=== PATIENT | male | born 1980 | race Caucasian/White ===

== ENCOUNTER 2020-02-14 03:51 | Emergency (ER) | payer BC, SELFPAY ==
[2020-02-14] MEDS ORDERED: AMOX/K CLAV 875 MG TAB ONE (04:14)
[2020-02-14] MEDS ORDERED: HYDROCODONE/APAP 10/325 TAB ONE (04:14)
[2020-02-14 04:26] VITALS: BP 191/121; TEMP 96.7; O2SAT 100
--- NOTE | 2020-02-18 15:32 | EDPHYS ---
Physician Documentation [facility] Name: Naseem Casillas Age: 39 yrs Sex: Male : 1980 Arrival Date: 02/14/2020 Time: 03:53 Bed 2 Private MD: ED Physician Waqar Martin HPI: 02/13 04:04 This 39 yrs old Male presents to ER via Unassigned with complaints of ma2 Toothache. 04:04 The patient presents with pain. Onset: The symptoms/episode began/occurred gradually, 2 ma2 day(s) ago. Associated signs and symptoms: Pertinent negatives: fever, nausea. Severity of symptoms: At their worst the symptoms were moderate, in the emergency department the symptoms are unchanged. The patient has experienced similar episodes in the past. Historical: - Allergies: 04:06 No Known Allergies; jb4 - Home Meds: 04:06 None [Active]; jb4 - PMHx: 04:06 Hypertension; jb4 - PSHx: 04:06 None; jb4 - Immunization history:: Adult Immunizations up to date. - Social history:: Patient/guardian denies using alcohol, street drugs, The patient lives with spouse, Smoking status: Patient reports the use of cigarette tobacco products, smokes one pack cigarettes per day. - Family history:: not pertinent. ROS: 04:04 Constitutional: Negative for fever, chills, and weight loss. ma2 04:04 All other systems are negative. Exam: 04:04 Constitutional: This is a well developed, well nourished patient who is awake, alert, ma2 and in no acute distress. Head/Face: Normocephalic, atraumatic. Eyes: Pupils equal round and reactive to light, extra-ocular motions intact. Lids and lashes normal. Conjunctiva and sclera are non-icteric and not injected. Cornea within normal limits. Periorbital areas with no swelling, redness, or edema. ENT: dental carisNares patent. No nasal discharge, no septal abnormalities noted. Tympanic membranes are normal and external auditory canals are clear. Oropharynx with no redness, swelling, or masses, exudates, or evidence of obstruction, uvula midline. Mucous membranes moist. Neck: Trachea midline, no thyromegaly or masses palpated, and no cervical lymphadenopathy. Supple, full range of motion without nuchal rigidity, or vertebral point tenderness. No Meningismus. Chest/axilla: Normal chest wall appearance and motion. Nontender with no deformity. No lesions are appreciated. Cardiovascular: Regular rate and rhythm with a normal S1 and S2. No gallops, murmurs, or rubs. Normal PMI, no JVD. No pulse deficits. Respiratory: Lungs have equal breath sounds bilaterally, clear to auscultation and percussion. No rales, rhonchi or wheezes noted. No increased work of breathing, no retractions or nasal flaring. Abdomen/GI: Soft, non-tender, with normal bowel sounds. No distension or tympany. No guarding or rebound. No evidence of tenderness throughout. Vital Signs: 04:03 BP 191 / 121; Pulse 90; Resp 16; Temp 96.7; Pulse Ox 100% on R/A; Weight 129.27 kg (R); jb4 Height 6 ft. 0 in. (182.88 cm) (R); Pain 10/10; 04:03 Body Mass Index 38.65 (129.27 kg, 182.88 cm) jb4 MDM: 04:00 Patient medically screened. ma2 04:04 Differential diagnosis: gingivitis, dental abscess, pericoronitis, aphthous ulcers. ma2 Data reviewed: vital signs, nurses notes. Counseling: I had a detailed discussion with the patient and/or guardian regarding: the historical points, exam findings, and any diagnostic results supporting the discharge/admit diagnosis, the presence of at least one elevated blood pressure reading (>120/80) during this emergency department visit, the need for outpatient follow up. Response to treatment: the patient's symptoms have markedly improved after treatment. Administered Medications: 04:08 Drug: [place] 10 mg-325 mg 1 tabs Route: PO; mg2 04:08 Follow up: Response: No adverse reaction; Medication administered at discharge. mg2 04:08 Drug: Augmentin 875 mg Route: PO; mg2 04:08 Follow up: Response: No adverse reaction; Medication administered at discharge. mg2 Disposition: 02/14/20 04:05 Discharged to Home. Impression: Dental caries. - Condition is Stable. - Discharge Instructions: Dental Pain. - Prescriptions for Augmentin 875- 125 mg Oral Tablet - take 1 tablet by ORAL route every 12 hours for 10 days; 20 tablet. Diclofenac Sodium 75 mg Oral Tablet Sustained Release - take 1 tablet by ORAL route 2 times per day; 30 tablet. - Medication Reconciliation Form, Thank You Letter, Antibiotic Education, Prescription Opioid Use form. - Follow up: Private Physician; When: Tomorrow; Reason: Continuance of care. Signatures: Roscoe Cevallos RN RN jb4 Waqar Martin MD MD ma2 Jarrett Flores RN RN mg2 Corrections: (The following items were deleted from the chart) 04:19 04:05 02/14/2020 04:05 Discharged to Home. Impression: Dental caries. Condition is jb4 Stable. Forms are Medication Reconciliation Form, Thank You Letter, Antibiotic Education, Prescription Opioid Use. Follow up: Private Physician; When: Tomorrow; Reason: Continuance of care. ma2
--- NOTE | 2020-02-18 15:35 | ER ---
Nurse's Notes [facility] Name: Naseem Casillas Age: 39 yrs Sex: Male : 1980 Arrival Date: 02/14/2020 Time: 03:53 Bed 2 Private MD: Diagnosis: Dental caries Presentation: 02/13 04:03 Chief complaint: Patient states: I have a toothache on the right side on the upper and jb4 lower front and back side. It started 2 days ago. Coronavirus screen: Proceed with normal triage. Ebola Screen: No symptoms or risks identified at this time. Initial Sepsis Screen: Does the patient meet any 2 criteria? No. Patient's initial sepsis screen is negative. Does the patient have a suspected source of infection? No. Patient's initial sepsis screen is negative. Risk Assessment: Do you want to hurt yourself or someone else? Patient reports no desire to harm self or others. Onset of symptoms was February 12, 2020. Transition of care: patient was not received from another setting of care. 04:03 Method Of Arrival: Ambulatory jb4 04:03 Acuity: NAOMI 3 jb4 Historical: - Allergies: 04:06 No Known Allergies; jb4 - Home Meds: 04:06 None [Active]; jb4 - PMHx: 04:06 Hypertension; jb4 - PSHx: 04:06 None; jb4 - Immunization history:: Adult Immunizations up to date. - Social history:: Patient/guardian denies using alcohol, street drugs, The patient lives with spouse, Smoking status: Patient reports the use of cigarette tobacco products, smokes one pack cigarettes per day. - Family history:: not pertinent. Screenin:10 Abuse screen: Denies threats or abuse. Denies injuries from another. Tuberculosis mg2 screening: No symptoms or risk factors identified. Fall Risk None identified. 04:17 Nutritional screening: No deficits noted. mg2 Assessment: 04:06 General: Appears in no apparent distress. uncomfortable, Behavior is calm, cooperative, jb4 appropriate for age. Pain: Complains of pain in mouth Pain does not radiate. Pain currently is 10 out of 10 on a pain scale. Neuro: Level of Consciousness is awake, alert, obeys commands, Oriented to person, place, time, situation. Cardiovascular: Patient's skin is warm and dry. Respiratory: Airway is patent Respiratory effort is even, unlabored, Respiratory pattern is regular, symmetrical. GI: No signs and/or symptoms were reported involving the gastrointestinal system. : No signs and/or symptoms were reported regarding the genitourinary system. EENT: Poor dentition noted. Absence of teeth noted - lower right second molar (#31). Derm: Skin is intact, Skin is pink, warm \T\ dry. Musculoskeletal: Circulation, motion, and sensation intact. Range of motion:. 04:10 General: Appears in no apparent distress. comfortable, Behavior is calm, cooperative. mg2 Pain: Complains of pain in tooth. Neuro: Level of Consciousness is awake, alert, obeys commands, Oriented to person, place, time, situation. Cardiovascular: Capillary refill < 3 seconds Patient's skin is warm and dry. Respiratory: Airway is patent Respiratory effort is even, unlabored, Respiratory pattern is regular, symmetrical. GI: No signs and/or symptoms were reported involving the gastrointestinal system. : No signs and/or symptoms were reported regarding the genitourinary system. EENT: Reports toothache. Derm: Skin is intact, is healthy with good turgor, Skin is pink, warm \T\ dry. normal. Musculoskeletal: Circulation, motion, and sensation intact. Capillary refill < 3 seconds. 04:18 Reassessment: Patient appears in no apparent distress at this time. Patient and/or jb4 family updated on plan of care and expected duration. Pain level reassessed. Patient is alert, oriented x 3, equal unlabored respirations, skin warm/dry/pink. Vital Signs: 04:03 BP 191 / 121; Pulse 90; Resp 16; Temp 96.7; Pulse Ox 100% on R/A; Weight 129.27 kg (R); jb4 Height 6 ft. 0 in. (182.88 cm) (R); Pain 10/10; 04:03 Body Mass Index 38.65 (129.27 kg, 182.88 cm) jb4 ED Course: 03:53 Patient arrived in ED. cl3 04:00 Waqar Martin MD is Attending Physician. ma2 04:01 Roscoe Cevallos, RN is Primary Nurse. jb4 04:05 Triage completed. jb4 04:06 Arm band placed on right wrist. jb4 04:06 Patient has correct armband on for positive identification. Bed in low position. Call jb4 light in reach. Side rails up X 1. 04:18 No provider procedures requiring assistance completed. Patient did not have IV access jb4 during this emergency room visit. Administered Medications: 04:08 Drug: [place] 10 mg-325 mg 1 tabs Route: PO; mg2 04:08 Follow up: Response: No adverse reaction; Medication administered at discharge. mg2 04:08 Drug: Augmentin 875 mg Route: PO; mg2 04:08 Follow up: Response: No adverse reaction; Medication administered at discharge. mg2 Outcome: 04:05 Discharge ordered by MD. deshpande 04:16 Discharged to home ambulatory. mg2 04:16 Condition: stable 04:16 Discharge instructions given to patient, Instructed on discharge instructions, follow up and referral plans. medication usage, Demonstrated understanding of instructions, follow-up care, medications, Prescriptions given X 2. 04:19 Patient left the ED. jb4 Signatures: Roscoe Cevallos RN RN jb4 Waqar Martin MD MD ma2 Jarrett Flores RN RN mg2 Uziel Shaffer 3
== END 2020-02-14 04:19 | disposition home or self-care (01) ==
LOC: ER 03:51
DX: K02.9 Dental caries, unspecified (principal); I10 Essential (primary) hypertension; F17.210 Nicotine dependence, cigarettes, uncomplicated
CPT/HCPCS: 99283

== ENCOUNTER 2021-08-17 01:04 | Emergency (ER) | payer SELFPAY ==
--- OUTSIDE RECORDS SUMMARY | 2021-08-17 01:09 | XMS REPORT | Continuity of Care Document ---
:1980 Author Organization [facility] t Address [address] [place] [address] Care Team Providers Name Role Phone Pcp, Does Not Have A Primary Care Physician Juan Miguel ARIZMENDI, F Attending Clinician Doctor Unassigned, Name Attending Clinician Unavailable Mary GARZA, [place] Attending Clinician [place] YA Attending Clinician Unavailable Danya ARIZMENDI Attending Clinician DANYA Attending Clinician Unavailable Alfredo Nova Attending Clinician ALFREDO BENITEZ Attending Clinician Unavailable Payers Payer Name Policy Type Policy Number Effective Date Expiration Date S alpa MARTINEZ BCBS BLUE [id number] 2016 ADVANTAGE HMO 00:00:00 Problems Condition Condition Condition Status Onset Resolution Last Treating Co mments Source Name Details Category Date Date Treatment Clinician Date No known No known Disease Unive rs active active ity of problems problems [facility] Allergies, Adverse Reactions, Alerts Allergy Allergy Status Severity Reaction(s) Onset Inactive Treating Comm ents Source Name Type Date Date Clinician NO KNOWN Drug Active Univers ALLERGIE Class ity of S [facility] [place] [facility] Social History Social Habit Start Date Stop Date Quantity Comments Source Exposure to Not sure [facility] SARS-CoV-2 (event) Medica l Branch Sex Assigned At [birth year] [facility] 00:00:00 00:00:00 Medical Branch Smoking Status Start Date Stop Date Source Unknown if ever smoked [facility] [place] [facility] Medications Ordered Filled Start Stop Current Ordering Indication Dosage Frequency Signature Comments Components Source Medication Medication Date Date Medication? Clinician (SIG) Name Name amoxicillin 2020- No 1{tbl} 1 tablet, Univers -clavulanat 05-23 Oral, ity of e 02:45: 01:38 ONCE, 1 [place] (AUGMENTIN) 00 :00 dose, Fri Med ical 875-125 mg 05/22/21 at Bran ch per tablet 2145, 1 tablet Routine
Reason for Anti-Infec tive: Documented Infection< br>Documen edna Infection Site: Skin / Soft Tissue
Duration of Therapy: Other (see Comments) amoxicillin 2020- No 1{tbl} 1 tablet, Univers -clavulanat 05-23 Oral, ity of e 02:45: 01:38 ONCE, 1 [place] (AUGMENTIN) 00 :00 dose, Fri Med ical 875-125 mg 05/22/21 at Bran ch per tablet 5, 1 tablet Routine
Reason for Anti-Infec tive: Documented Infection< br>Documen edna Infection Site: Skin / Soft Tissue
Duration of Therapy: Other (see Comments) amoxicillin 2020- Yes [id number] 1{tbl} Take 1 Univers -clavulanat 05-22 tablet by it y of e 875-125 00:00: 04:59 mouth [place] mg per 00 :00 every 12 Medical tablet (twelve) Branch hours for 8 days. amoxicillin 2020- Yes [id number] 1{tbl} Take 1 Univers -clavulanat 05-22 tablet by it y of e 875-125 00:00: 04:59 mouth [place] mg per 00 :00 every 12 Medical tablet (twelve) Branch hours for 8 days. indomethaci 2020- Yes [id number] 50mg Take 1 Univers n 50 mg 05-22 capsule by ity o f capsule 00:00: 04:59 mouth 3 [place] 00 :00 (three) Medical times Branch daily with meals for 7 days. indomethaci 2020- Yes [id number] 50mg Take 1 Univers n 50 mg 05-22 capsule by ity o f capsule 00:00: 04:59 mouth 3 [place] 00 :00 (three) Medical times [place] daily with meals for 7 days. indomethaci 2020- No [id number] 50mg Take 1 Univers n 50 mg 05-22 capsule by ity o f capsule 00:00: 00:00 mouth 3 [place] 00 :00 (three) Medical times [place] daily with meals for 7 days. indomethaci 2020- No [id number] 50mg Take 1 Univers n 50 mg 05-22 capsule by ity o f capsule 00:00: 00:00 mouth 3 [place] 00 :00 (three) Medical times [place] daily with meals for 7 days. ibuprofen 2020- No 800mg 800 mg, Uni vers (IBU) 05-13 Oral, ity of tablet 800 01:45: 13:44 ONCE, 1 Y[place]iel as mg 00 :00 dose, [facility] 05/12/21 at [place] 2044, ADONIS cephALEXin 2020- No 500mg 500 mg, Un leona (KEFLEX) 05-13 Oral, ONCE ity of capsule 500 01:45: 00:39 NOW, 1 [place] as mg 00 :00 dose, [facility] 05/12/21 at [place] 2044, ADONIS
Re ason for Anti-Infec tive: Documented Infection< br>Documen dena Infection Site: HEENT
D uration of Therapy: 10 days ibuprofen No 800mg 800 mg, Uni vers (IBU) 05-13 Oral, ity of tablet 800 01:45: 13:44 ONCE, 1 [place]ariel as mg 00 :00 dose, [facility] 05/12/21 at [place] 2044, ADONIS cephALEXin 2020- No 500mg 500 mg, Un leona (KEFLEX) 05-13 Oral, ONCE ity of capsule 500 01:45: 00:39 NOW, 1 [place] as mg 00 :00 dose, [facility] 05/12/21 at [place] , ADONIS
Re ason for Anti-Infec tive: Documented Infection< br>Documen edna Infection Site: HEENT
D uration of Therapy: 10 days chlorhexidi 2021-0 Yes [id number] 15mL Swish and Univers ne 0.12 % 8-24 spit out ity of mouthwash 00:00: 15 mL 2 [place] 00 (two) Medical times Branch daily. chlorhexidi 2020-0 Yes [id number] 15mL Swish and Univers ne 0.12 % 8-24 spit out ity of mouthwash 00:00: 15 mL 2 [place] 00 (two) Medical times Branch daily. chlorhexidi 2020-0 Yes [id number] 15mL Swish and Univers ne 0.12 % 8-24 spit out ity of mouthwash 00:00: 15 mL 2 [place] 00 (two) Medical times Branch daily. chlorhexidi 2020-0 Yes [id number] 15mL Swish and Univers ne 0.12 % 8-24 spit out ity of mouthwash 00:00: 15 mL 2 [place] 00 (two) Medical times Branch daily. chlorhexidi 2020-0 Yes [id number] 15mL Swish and Univers ne 0.12 % 8-24 spit out ity of mouthwash 00:00: 15 mL 2 [place] 00 (two) Medical times Branch daily. chlorhexidi 2020-0 Yes [id number] 15mL Swish and Univers ne 0.12 % 8-24 spit out ity of mouthwash 00:00: 15 mL 2 [place] 00 (two) Medical times Branch daily. indomethaci 2020- No [id number] 50mg Take 1 Univers n 50 mg 8-12 06- capsule by ity o f capsule 00:00: 04:59 mouth 3 [place] 00 :00 (three) Medical times Branch daily with meals for 10 days. indomethaci 2020- No [id number] 50mg Take 1 Univers n 50 mg 8-12 06- capsule by ity o f capsule 00:00: 04:59 mouth 3 [place] 00 :00 (three) Medical times Branch daily with meals for 10 days. indomethaci 2020- No [id number] 50mg Take 1 Univers n 50 mg 8-12 06- capsule by ity o f capsule 00:00: 04:59 mouth 3 [place] 00 :00 (three) Medical times Branch daily with meals for 10 days. indomethaci 2020- No [id number] 50mg Take 1 Univers n 50 mg 05-12 capsule by ity o f capsule 00:00: 04:59 mouth 3 [place] 00 :00 (three) Medical times Branch daily with meals for 10 days. indomethaci 2020-2020- No [id number] 50mg Take 1 Univers n 50 mg 05-12 capsule by ity o f capsule 00:00: 00:00 mouth 3 [place] 00 :00 (three) Medical times Branch daily with meals for 10 days. indomethaci 2020- No [id number] 50mg Take 1 Univers n 50 mg 05-12 capsule by ity o f capsule 00:00: 00:00 mouth 3 [place] 00 :00 (three) Medical times Branch daily with meals for 10 days. cephALEXin 2020- No [id number] 500mg Take 1 Univers 500 mg 05-12 capsule by ity of capsule 00:00: 04:59 mouth 4 [place] 00 :00 (four) Medical times Branch daily for 7 days. cephALEXin 2020- No [id number] 500mg Take 1 Univers 500 mg 05-12 capsule by ity of capsule 00:00: 04:59 mouth 4 [place] 00 :00 (four) Medical times Branch daily for 7 days. cephALEXin 2020- No 500mg 500 mg, Un leona (KEFLEX) 12-01 Oral, ONCE ity of capsule 500 06:15: 05:11 NOW, 1 [place] as mg 00 :00 dose, [facility] 12/01/20 at Branch 0115, ADONIS
Re ason for Anti-Infec tive: Documented Infection< br>Documen edna Infection Site: Skin / Soft Tissue
Duration of Therapy: 7 days ketorolac 2020- No 30mg 30 mg, Unive rs (TORADOL) 12-01 Slow IV ity of injection 04:15: 03:22 Push, [place] 30 mg 00 :00 ONCE, 1 Medical dose, [facility] 11/30/20 at 2315, ADONIS
Fa culty member approving Restricted medication : EMERGENCY ROOM, pantoprazol 2020- No 40mg 40 mg, IV Univers e 12-01 Piggyback, ity of (PROTONIX) 04:00: 03:23 ONCE, 1 [place] as 40 mg in 00 :00 dose, [facility] NaCl 0.9% 11/30/20 at [facility] ch (NS) 100 mL 2300, 100 MINI-BAG mL iohexol 2020- No [id number] 120mL 120 mL, Univers (OMNIPAQUE 12-01 Intravenou it y of 350 03:45: 03:27 s, ONCE, 1 [place] BULK-100 00 :00 dose, [facility] mL) 11/30/20 at [place] injection 2245, 120 mL Routine maalox:diph 2020- No 15mL 15 mL, Uni vers enhydrAMINE 12-01 Oral, ity of :lidocaine 03:00: 03:06 ONCE, 1 [place] as 2 % viscous 00 :00 dose, [place] Med ical 1:1:1 11/30/20 at [place] (FIRST-MOUT 2200, ADONIS HWASH BLM) oral suspension 15 mL NaCl 0.9% 2020- No 1000mL at 999 Uni vers (NS) bolus 12-01 mL/hr, ity of infusion 03:00: 05:13 1,000 mL, Y[place]iel as 1,000 mL 00 :00 IV Medical Infusion, [place] ONCE, 1 dose, [place] 11/30/20 at 2200, ADONIS pantoprazol 2020- No [id number] 40mg Take 1 Univers e 12-01 tablet by ity of (PROTONIX) 00:00: 04:59 mouth [place] 40 mg EC 00 :00 daily for Medica l tablet 30 days. [place] cephALEXin 2020- No [id number] 500mg Take 1 Univers (KEFLEX) 12-01 [id number] capsule by it y of 500 mg 00:00: 04:59 mouth 4 [place] capsule 00 :00 (four) Medical times [place] daily for 7 days. acetaminoph 2020- No [id number] 1{tbl} Take 1 U nivers en-codeine 12-01 tablet by ity of 300-30 mg 00:00: 04:59 mouth [place] tablet 00 :00 every 6 Medical (six) Branch hours as needed for Pain (scale 7-10) for up to 7 days. Indication s: acute pain traMADoL 2020-2020- No 100mg 100 mg, Univ ers (ULTRAM) 10-22 Oral, ity of tablet 100 03:00: 01:58 ONCE, 1 [place] as mg 00 :00 dose, [facility] Medical 10/21/20 at Branch 2100, Routine ibuprofen 2020-2020- No 600mg 600 mg, Uni vers (IBU) 10-22 Oral, ity of tablet 600 03:00: 01:57 ONCE, 1 [place] as mg 00 :00 dose, [facility] Medical 10/21/20 at Branch 2100, ADONIS cyclobenzap 2020- No 10mg 10 mg, Uni vers rine 10-22 Oral, ity of (FLEXERIL) 03:00: 01:57 ONCE, 1 [place] as tablet 10 00 :00 dose, [facility] Medic al mg 10/21/20 at Branch 2100, Routine cyclobenzap 0 Yes [id number] 10mg Take 1 Univers rine 10 mg 2-02 tablet by ity of tablet 00:00: mouth 3 [place] 00 (three) Medical times Branch daily. ibuprofen 2020-0 Yes [id number] 600mg Take 1 Univers 600 mg 2-02 tablet by ity of tablet 00:00: mouth [place] 00 every 6 Medical (six) Branch hours as needed for Pain (scale 4-6). cyclobenzap 2020-0 Yes [id number] 10mg Take 1 Univers rine 10 mg 2-02 tablet by ity of tablet 00:00: mouth 3 [place] 00 (three) Medical times Branch daily. ibuprofen 2020-0 Yes [id number] 600mg Take 1 Univers 600 mg 2-02 tablet by ity of tablet 00:00: mouth [place] 00 every 6 Medical (six) Branch hours as needed for Pain (scale 4-6). cyclobenzap 2020-0 202- No [id number] 10mg Take 1 Univers rine 10 mg 2-02 08-24 tablet by ity of tablet 00:00: 00:00 mouth 3 [place] 00 :00 (three) Medical times Branch daily. ibuprofen 2020-0 2021- No [id number] 600mg Take 1 Univers 600 mg 2-02 08-24 tablet by ity of tablet 00:00: 00:00 mouth [place] 00 :00 every 6 Medical (six) Branch hours as needed for Pain (scale 4-6). cyclobenzap 2020- No [id number] 10mg Take 1 Univers rine 10 mg -10 27-24 tablet by ity of tablet 00:00: 00:00 mouth 3 [place] 00 :00 (three) Medical times Branch daily. ibuprofen 2020- No [id number] 600mg Take 1 Univers 600 mg 10-21-24 tablet by ity of tablet 00:00: 00:00 mouth [place] 00 :00 every 6 Medical (six) Branch hours as needed for Pain (scale 4-6). sod Yes 1{bottl Use 1 Univers chlor-bicar 2-07 e} Bottle in ity of b-squeez 00:00: each [place] bottle 00 nostril 2 Medical (NEILMED (two) Branch SINUS RINSE times COMPLETE) daily. Use pkdv in hot shower 1 hour before bedtime benzonatate Yes 100mg Take 1 Uni vers 100 mg 2-07 capsule by ity of capsule 00:00: mouth 3 [place] 00 (three) Medical times Branch daily as needed for Cough. DO NOT CHEW! montelukast Yes 10mg Take 1 Univ ers (SINGULAIR) 2-07 tablet by ity of 10 mg 00:00: mouth [place] tablet 00 daily. Medical Branch sod Yes 1{bottl Use 1 Univers chlor-bicar 2-07 e} Bottle in ity of b-squeez 00:00: each [place] bottle 00 nostril 2 Medical (NEILMED (two) Branch SINUS RINSE times COMPLETE) daily. Use pkdv in hot shower 1 hour before bedtime benzonatate Yes 100mg Take 1 Uni vers 100 mg 2-07 capsule by ity of capsule 00:00: mouth 3 [place] 00 (three) Medical times Branch daily as needed for Cough. DO NOT CHEW! montelukast Yes 10mg Take 1 Univ ers (SINGULAIR) 2-07 tablet by ity of 10 mg 00:00: mouth [place] tablet 00 daily. Medical Branch sod 2020- No 1{bottl Use 1 Univers chlor-bicar 2-07 08-24 e} Bottle in it y of b-squeez 00:00: 00:00 each [place] bottle 00 :00 nostril 2 Medical (NEILMED (two) Branch SINUS RINSE times COMPLETE) daily. Use pkdv in hot shower 1 hour before bedtime benzonatate 2020- No 100mg Take 1 Un leona 100 mg 10-26 capsule by ity of capsule 00:00: 00:00 mouth 3 [place] 00 :00 (three) Medical times Branch daily as needed for Cough. DO NOT CHEW! montelukast 2020- No 10mg Take 1 Uni vers (SINGULAIR) 10-26-24 tablet by it y of 10 mg 00:00: 00:00 mouth [place] tablet 00 :00 daily. Medical Branch sod 2020- No 1{bottl Use 1 Univers chlor-bicar 10-26 e} Bottle in it y of b-squeez 00:00: 00:00 each [place] bottle 00 :00 nostril 2 Medical (NEILMED (two) Branch SINUS RINSE times COMPLETE) daily. Use pkdv in hot shower 1 hour before bedtime benzonatate 2020- No 100mg Take 1 Un leona 100 mg 10-26- capsule by ity of capsule 00:00: 00:00 mouth 3 [place] 00 :00 (three) Medical times [place] daily as needed for Cough. DO NOT CHEW! montelukast 2020- No 10mg Take 1 Uni vers (SINGULAIR) 10-26-24 tablet by it y of 10 mg 00:00: 00:00 mouth [place] tablet 00 :00 daily. [facility] Branch Vital Signs Vital Name Observation Time Observation Value Comments Source Systolic blood 2021-05-22 23:27:00 190 [facility] Diastolic blood 2021-05-22 23:27:00 104 mm[Hg] [facility] Heart rate 2021-05-22 23:27:00 88 /min [facility] Body temperature 2021-05-22 23:27:00 37.28 Delaney [facility] Respiratory rate 2021-05-22 23:27:00 18 /min [facility] Body weight 2021-05-22 23:27:00 122.471 kg [facility] [place] [facility] BMI 2021-05-22 23:27:00 36.62 kg/m2 [facility] [place] [facility] Oxygen saturation in 2021-05-22 23:27:00 99 /min University of Arterial blood by [facility] Pulse oximetry Branch Systolic blood 2021-05-13 01:12:00 145 mm[Hg] MAP 115 Univer sity of pressure [place] [facility] Diastolic blood 2021-05-13 01:12:00 100 mm[Hg] MAP 115 Unive rsity of pressure [place] [facility] Heart rate 2021-05-13 01:12:00 86 /min [facility] [place] [facility] Body temperature 2021-05-13 01:12:00 36.89 Delaney Univ ersity [facility] [place] [facility] Respiratory rate 2021-05-13 01:12:00 18 /min Univ ersity [facility] [place] [facility] Oxygen saturation in 2021-05-13 01:12:00 97 /min University of Arterial blood by [facility] Pulse oximetry Branch Body height 2021-05-13 00:07:00 182.9 cm [facility] [place] [facility] Body weight 2021-05-13 00:07:00 122.471 kg [facility] [place] [facility] BMI 2021-05-13 00:07:00 36.62 kg/m2 [facility] [place] [facility] Systolic blood 2020-12-01 04:00:00 155 mm[Hg] Univer sity of pressure [place] [facility] Diastolic blood 2020-12-01 04:00:00 97 mm[Hg] Unive rsity of pressure [place] [facility] Heart rate 2020-12-01 04:00:00 84 /min [facility] [place] [facility] Respiratory rate 2020-12-01 04:00:00 10 /min Univ ersity [facility] [place] [facility] Oxygen saturation in 2020-12-01 04:00:00 99 /min University of Arterial blood by [facility] Pulse oximetry Branch Body temperature 2020-12-01 02:30:09 36.5 Delaney Univ ersity [facility] [place] [facility] Body height 2020-12-01 02:28:00 182.9 cm [facility] [place] [facility] Body weight 2020-12-01 02:28:00 127.007 kg [facility] BMI 2020-12-01 02:28:00 37.97 kg/m2 [facility] Systolic blood 2020-10-22 01:13:00 155 mm[Hg] Univer sity of [facility] Diastolic blood 2020-10-22 01:13:00 104 mm[Hg] [facility] Heart rate 2020-10-22 01:13:00 81 /min [facility] Body temperature 2020-10-22 01:13:00 36.78 Delaney [facility] Respiratory rate 2020-10-22 01:13:00 18 /min [facility] Body height 2020-10-22 01:13:00 182.9 cm [facility] Body weight 2020-10-22 01:13:00 131.543 kg [facility] BMI 2020-10-22 01:13:00 39.33 kg/m2 [facility] Oxygen saturation in 2020-10-22 01:13:00 99 /min [facility] Arterial blood by [facility] Pulse oximetry Branch Procedures Procedure Date / Time Performed Performing Clinician [facility] e CONSENT/REFUSAL FOR 2021-05-22 23:05:35 [facility] Branch TREATMENT CONSENT/REFUSAL FOR 2021-05-12 23:53:47 Doctor Unassigned, No [facility] [place] [facility] AND Name Medical Branch TREATMENT CT ABDOMEN PELVIS W 2020-12-01 03:31:27 Romero Hagan [facility] CONTRAST [facility] Branch LIPASE 2020-12-01 02:39:00 Romero Hagan [facility] HEPATIC FUNCTION PANEL 2020-12-01 02:39:00 Romero Hagan [facility] ([id number]) Medical [place] (ALB,T.PRO,BILI T,BU/BC,ALT,AST,ALK PHOS) BASIC METABOLIC PANEL 2020-12-01 02:39:00 Romero Hagan [facility] (NA, K, CL, CO2, Medical Branch GLUCOSE, BUN, CREATININE, CA) CBC WITH DIFF 2020-12-01 02:39:00 Romero Hagan [facility] [place] [facility] URINALYSIS 2020-12-01 02:39:00 Romero Hagan [facility] [place] [facility] CONSENT/REFUSAL FOR 2020-12-01 02:20:50 Doctor Unassigned, No Un i[facility] of [place] DIAGNOSIS AND Name Medical Branch TREATMENT NOTICE OF PRIVACY 2020-10-22 01:05:49 Doctor Unassigned, No Univ ersity [facility] PRACTICES Name Medical Branch CONSENT/REFUSAL FOR 2020-10-22 01:02:45 Doctor Unassigned, No Un iversity of [place] DIAGNOSIS AND Name Medical Branch TREATMENT Encounters Start End Encounter Admission Attending Care Care Encounter Source Date/Time Date/Time Type Type Clinicians Facility Department ID 2021-05-22 2021-05-22 [facility] [id number] Univers 18:29:00 20:41:00 Nico Cervantes [id number] ity of [place] [id number] [facility] [id number] [place] [id number] Branch 2021-05-22 2021-05-22 Emergency X [facility] ERT [id number] Univers 18:05:00 18:05:00 ity of [facility] [place] [facility] 2021-05-22 2021-05-22 Orders Doctor KIM [id number] Univers 00:00:00 00:00:00 Only Unassigned, KELLY [id number] ity of [place] [facility] [id number] [facility] [place] [facility] [id number] [facility] 009 Branch 2021-05-12 2021-05-12 Emergency [facility] [id number] Univers 19:10:00 20:15:00 Sheba Cervantes [id number] ity of [place] [id number] [facility] [id number] [facility] 084 Branch 2021-05-12 2021-05-12 Emergency X [facility] ERT [id number] Univers 19:10:00 19:10:00 SHEBA alvarez [facility] 2020-11-30 2020-12-01 [facility] [id number] Univers 21:32:00 00:21:00 Romero Cervantes [id number] i ty of [place] [id number] [facility] [id number] [place] [address] Branch 2020-11-30 2020-11-30 Emergency X HAGAN, [facility] ERT [id number] Univers 21:32:00 21:32:00 ROMERO ity [facility] 2020-10-21 2020-10-21 Emergency Emmanuel, [facility] [id number] Univers 19:16:00 20:08:00 Alfredo Cervantes [id number] i ty of [place] [id number] [facility] [id number] [place] [address] Branch 2020-10-21 2020-10-21 Emergency X EMMANUEL, [facility] ERT [id number] Univers 19:16:00 19:16:00 [facility] Results Test Test Test Results Result Source Description Time Comments Comments CT ABDOMEN 2020-11 1. ?Mild edematous pancreatic University PELVIS W -15 head with peripancreatic fat of [place] CONTRAST 04:29:0 strandingsuggests acute M edical 6 interstitial pancreatitis. No Branch peripancreatic collections ornecrosis is identified. 2. ?Cholelithiasis. Hepatosplenomegaly with hepatic steatosis. 3. ?Left-sided simple renal cysts, measuring up to 1.7 cm. Preliminary Report Dictated by Resident: Tyler Cota ?MD. [place], have reviewed this study and agree withthe above report.EXAM: CT ABDOMEN AND PELVIS WITH CONTRAST HISTORY: 40-year-old male complains of diffuse abdominal pain anddistention. COMPARISON: None. DOSE: 741 mGy-cm. TECHNIQUE AND FINDINGS: Contiguous axial imaging from the level of the lungbases through the pubic symphysis was performed after the uncomplicatedadministration of 120 cc of intravenous Omnipaque contrast. Coronal andsagittal reconstructions were obtained. ?Auto mA and/or iterativereconstruction were used to reduce radiation dose. FINDINGS: LOWER THORAX: The lungs bases are clear. No cardiomegaly. LIVER: The liver is diffusely hypodense and enlarged, measures 25.3 cm incraniocaudal dimension. Normal contour. No focal hepatic lesions areidentified. GALLBLADDER AND BILIARY TREE: No biliary ductal dilation. The gallbladderis physiologically distended and an contains mixed density stones,measuring up to 1.9 cm. SPLEEN: The spleen is enlarged, measures 14.9 cm in craniocaudal dimension. PANCREAS: The pancreatic head appears slightly edematous with homogeneousenhancement and mild peripancreatic fat stranding (3:63-72 and 5:53). Noperihepatic collections are identified. Mild fatty atrophy of the pancreasis noted. No ductal dilation or masses. ADRENAL GLANDS: No adrenal nodules. KIDNEYS: The kidneys demonstrate symmetric and homogeneous enhancement. A1.4 cm hypodensity (9 Hounsfield unit is seen in the anterior portion ofthe interpolar region of the left kidney, a similar appearing but biggerstructure measuring 1.7 cm is seen in the upper pole of the left kidney,likely represent a simple cysts (3:77, 57). No hydronephrosis, stones ormasses are identified. PERITONEUM AND RETROPERITONEUM: A tiny fat-containing umbilical hernia ispresent. No free air or fluid. LYMPH NODES: No lymphadenopathy. GI TRACT: The appendix is normal (3:115-128). No dilation or wallthickening. PELVIS/BLADDER: The bladder is partially distended and appearsunremarkable. VESSELS: The abdominal vasculature is patent. BONES AND SOFT TISSUES: No suspicious lytic or sclerotic bony lesions. Rust, Radiant Results Inft User - 11/30/2020 11:30 PM CDTEXAM: CT ABDOMEN AND PELVIS WITH CONTRASTHISTORY: 40-year-old male complains of diffuse abdominal pain anddistention.COMPARISON: None.DOSE: 741 mGy-cm.TECHNIQUE AND FINDINGS: Contiguous axial imaging from the level of the lungbases through the pubic symphysis was performed after the uncomplicatedadministration of 120 cc of intravenous Omnipaque contrast. Coronal andsagittal reconstructions were obtained. Auto mA and/or iterativereconstruction were used to reduce radiation dose.FINDINGS:LOWER THORAX: The lungs bases are clear. No cardiomegaly.LIVER: The liver is diffusely hypodense and enlarged, measures 25.3 cm incraniocaudal dimension. Normal contour. No focal hepatic lesions areidentified.GALLBLADDER AND BILIARY TREE: No biliary ductal dilation. The gallbladderis physiologically distended and an contains mixed density stones,measuring up to 1.9 cm.SPLEEN: The spleen is enlarged, measures 14.9 cm in craniocaudal dimension.PANCREAS: The pancreatic head appears slightly edematous with homogeneousenhancement and mild peripancreatic fat stranding (3:63-72 and 5:53). Noperihepatic collections are identified. Mild fatty atrophy of the pancreasis noted. No ductal dilation or masses.ADRENAL GLANDS: No adrenal nodules.KIDNEYS: The kidneys demonstrate symmetric and homogeneous enhancement. A1.4 cm hypodensity (9 Hounsfield unit is seen in the anterior portion ofthe interpolar region of the left kidney, a similar appearing but biggerstructure measuring 1.7 cm is seen in the upper pole of the left kidney,likely represent a simple cysts (3:77, 57). No hydronephrosis, stones ormasses are identified.PERITONEUM AND RETROPERITONEUM: A tiny fat-containing umbilical hernia ispresent. No free air or fluid.LYMPH NODES: No lymphadenopathy.GI TRACT: The appendix is normal (3:115-128). No dilation or wallthickening.PELVIS/BLADDER: The bladder is partially distended and appearsunremarkable.VESSELS: The abdominal vasculature is patent.BONES AND SOFT TISSUES: No suspicious lytic or sclerotic bony lesions.IMPRESSION1. Mild edematous pancreatic head with peripancreatic fat strandingsuggests acute interstitial pancreatitis. No peripancreatic collections ornecrosis is identified.2. Cholelithiasis. Hepatosplenomegaly with hepatic steatosis.3. Left-sided simple renal cysts, measuring up to 1.7 cm.Preliminary Report Dictated by Resident: Caleb Wood, Tyler Deutsch MD., have reviewed this study and agree withthe above report. Urinalysis 2020-12-01 03:02:53 Test Item Value Reference Range Interpretation Comme nts APPEARANCE (test code = Clear Clear 7846849887) COLOR (test code = 1521253345) Yellow Yellow PH (test code = 1285387594) 4.8-8.0 SP GRAVITY (test code = 1.003-1.030 4186425319) GLU U QUAL (test code = Normal Normal 3628454252) BLOOD (test code = 3948446268) Negative Negative KETONES (test code = 1512296740) Negative Negative PROTEIN (test code = 2887-8) Negative Negative UROBILIN (test code = Normal Normal 5190132785) BILIRUBIN (test code = Negative Negative 4811360257) NITRITE (test code = 2754624781) Negative Negative LEUK JORGE ALBERTO (test code = Negative Negative 3601745030) RBC/HPF (test code = 8839599440) <1 See_Comment [Automated message] The system which ge nerated this result transmit edna reference range: 0 - 3 HP F. The reference range was not used to interpret th is result as normal/abnormal . WBC/HPF (test code = 9142241818) See_Comment [Automated message] The system which ge nerated this result transmit edna reference range: 0 - 5 HP F. The reference range was not used to interpret th is result as normal/abnormal . BACTERIA (test code = Few Negative A 4003689999) MUCOUS (test code = 0193632537) Slight Negative LPF A Lab Interpretation (test code = Abnormal 19631-6) [facility] (ALB, T.PRO, BILI T, BU/BC, ALT, AST, ALK PHOS)2020-12-01 03:02:38 Test Item Value Reference Range Interpretation Comments TOTAL BILI (test code = 5942457077) 0.8 mg/dL 0.1-1.1 BILI UNCON (test code = 4047835858) 0.8 mg/dL 0.1-1.1 BILI CONJ (test code = 3466647987) 0.0 mg/dL 0.0-0.3 T PROTEIN (test code = 4456972040) 7.8 g/dL 6.3-8.2 ALBUMIN (test code = 5680638844) 4.3 g/dL 3.5-5.0 ALK PHOS (test code = 7809205719) 89 U/L 34-122 ALTv (test code = 1742-6) 26 U/L 5-50 AST(SGOT) (test code = 8136584436) 19 U/L 13-40 Lab Interpretation (test code = Normal 40218-6) [facility] (NA, K, CL, CO2, GLUCOSE, BUN, CREATININE, CA)2020-12-01 03:02:18 Test Item Value Reference Range Interpretation Comments NA (test code = 137 mmol/L 135-145 1394667956) K (test code = 3.7 mmol/L 3.5-5.0 7381286872) CL (test code = 99 mmol/L 98-108 9425221259) CO2 TOTAL (test code = 30 mmol/L 23-31 4251019140) AGAP (test code = 2-16 1520467564) BUN (test code = 7 mg/dL 7-23 8979533593) GLUCOSE (test code = 163 mg/dL 70-110 H 0071067748) CREATININE (test code = 0.69 mg/dL 0.60-1.25 4512996799) CALCIUM (test code = 9.9 mg/dL 8.6-10.6 1115363201) eGFR Calculation mL/min/1.73m2 (Non-) (test code = 6382029172) eGFR Calculation mL/min/1.73m2 () (test code = 8875694114) MAJO (test code = MAJO) Association of Glomerular Filtration Rate (GFR) and Staging of Kidney Disease* + --+ --+ ------+| GFR (mL/min/1.73 m2) ?| With Kidney Damage ?| ?Without Kidney Damage+ --------+ --------+ +| ?>90 ?| ?Stage one ?| ? Normal ?+ ---+ ---+ -------+| ?60-89 ?| ?Stage two ?| ? Decreased GFR ? + --+ --+ ------+| ?30-59 ?| ?Stage three ?| ? Stage three ? + --+ --+ ------+| ?15-29 ?| ?Stage four ? | ? Stage four ?+ ---+ ---+ -------+| ?<15 (or dialysis) ? ?| ?Stage five ? | ? Stage five ?+ ---+ ---+ -------+ *Each stage assumes the associated GFR level has been in effect for at least three months. ?Stages 1 to 5, with or without kidney disease, indicate chronic kidney disease. Notes: Determination of stages one and two (with eGFR >59mL/min/1.73 m2) requires estimation of kidney damage for at least three months as defined by structural or functional abnormalities of the kidney, manifested by either:Pathological abnormalities or Markers of kidney damage (including abnormalities in the composition of the blood or urine or abnormalities in imaging tests). Lab Interpretation Abnormal (test code = 35168-8) [facility]Lip[facility] [id number] 03:02:18 Test Item Value Reference Range Interpretation Comments LIPASE (test code = 9791796335) 127 U/L 0-220 Lab Interpretation (test code = Normal 37648-1) [facility]CBC with [id number] 02:52:58 Test Item Value Reference Range Interpretation Comments WBC (test code = See_Comment H [Automated 6690-2) message] The sy stem which generated this result transmitted reference range : 4.20 - 10.70 10*3/?L. The reference range was not used to interpret this result as normal/abnormal . RBC (test code = See_Comment H [Automated 789-8) message] The sy stem which generated this result transmitted reference range : 4.26 - 5.52 10*6/?L. The reference range was not used to interpret this result as normal/abnormal . HGB (test code = 15.5 g/dL 12.2-16.4 718-7) HCT (test code = 46.6 % 38.4-49.3 4544-3) MCV (test code = 78.7 fL 81.7-95.6 L 787-2) MCH (test code = 26.2 pg 26.1-32.7 785-6) MCHC (test code = 33.3 g/dL 31.2-35.0 786-4) RDW-SD (test code = 38.6 fL 38.5-51.6 48716-7) RDW-CV (test code = 13.7 % 12.1-15.4 788-0) PLT (test code = See_Comment H [Automated 777-3) message] The sy stem which generated this result transmitted reference range : 150 - 328 10*3/ ?L. The reference r heidi was not used to interpret this result as normal/abnormal . MPV (test code = 9.5 fL 9.8-13.0 L 62283-9) NRBC/100 WBC (test See_Comment [Automat ed code = 0196865657) message] The system which generated this result transmitted reference range : 0.0 - 10.0 /100 WBCs. The refer ence range was not u sed to interpret th is result as normal/abnormal . NRBC x10^3 (test code <0.01 See_Comment [Auto mated = 9885709938) message] The s ystem which generated this result transmitted reference range : 10*3/?L. The reference range was not used to interpret this result as normal/abnormal . GRAN MAT (NEUT) % 71.0 % (test code = 770-8) IMM GRAN % (test code 0.60 % = 7397120639) LYMPH % (test code = 18.0 % 736-9) MONO % (test code = 6.0 % 5905-5) EOS % (test code = 3.6 % 713-8) BASO % (test code = 0.8 % 706-2) GRAN MAT x10^3(ANC) 9.92 10*3/uL 1.99-6.95 H (test code = 4557196991) IMM GRAN x10^3 (test 0.09 10*3/uL 0.00-0.06 H code = 4756067826) LYMPH x10^3 (test code 2.52 10*3/uL 1.09-3.23 = 731-0) MONO x10^3 (test code 0.84 10*3/uL 0.36-1.02 = 742-7) EOS x10^3 (test code = 0.51 10*3/uL 0.06-0.53 711-2) BASO x10^3 (test code 0.11 10*3/uL 0.01-0.09 H = 704-7) Lab Interpretation Abnormal (test code = 45058-1) [facility]"
--- NOTE | 2021-08-17 01:17 | EDPHYS ---
Physician Documentation [facility] Name: Naseem Casillas Age: 40 yrs Sex: Male : 1980 Arrival Date: 08/17/2021 Time: 01:09 Bed 18 Private MD: ED Physician Naeem Blanton HPI: 08/17 01:24 This 40 yrs old Male presents to ER via Ambulatory with complaints of Abscess. kb 01:24 The patient presents with an abscess of the lower right second molar (#31). kb Description: swollen. Onset: The symptoms/episode began/occurred 5 day(s) ago. Possible cause(s): unknown. Associated signs and symptoms: Pertinent positives: drainage, swelling. Modifying factors: the symptoms are alleviated by nothing, the symptoms are aggravated by nothing. Severity of symptoms: At their worst the symptoms were moderate, in the emergency department the symptoms have improved. The patient has not experienced similar symptoms in the past. The patient has not recently seen a physician. Pt reports he developed a tooth abscess on Tuesday. Has an appt with dentist this week, but was told to come to the ER if it ruptured to get antibiotics. States it ruptured tonight so he came in . Historical: - Allergies: 01:22 No Known Allergies; bb - Home Meds: 01: None [Active]; bb - PMHx: :22 None; bb - PSHx: 01:22 foreign body removed from lung; bb - Immunization history:: Adult Immunizations up to date, Client reports receiving the Car \T\ Car single-dose vaccine. Note and booster. - Social history:: Smoking status: Patient reports the use of cigarette tobacco products, smokes one pack cigarettes per day. Patient uses alcohol, but reports only rare drinking. Patient/guardian denies using street drugs. ROS: 01:23 Constitutional: Negative for fever, chills, and weight loss. kb 01:23 ENT: Positive for dental pain. 01:23 All other systems are negative. Exam: 01:23 Constitutional: This is a well developed, well nourished patient who is awake, alert, kb and in no acute distress. Head/Face: Normocephalic, atraumatic. Respiratory: Respirations even and unlabored. No increased work of breathing, no retractions or nasal flaring. Skin: Warm, dry with normal turgor. Normal color. MS/ Extremity: Pulses equal, no cyanosis. Neurovascular intact. Full, normal range of motion. Neuro: Awake and alert, GCS 15, oriented to person, place, time, and situation. Moves all extremities. Normal gait. Psych: Awake, alert, with orientation to person, place and time. Behavior, mood, and affect are within normal limits. 01:23 ENT: Dental exam: abscess, specifically in the lower right second molar (#31), gum swelling, pain. Vital Signs: 01:19 BP 158 / 82; Pulse 98; Resp 16 S; Temp 98.1; Pulse Ox 96% on R/A; Weight 119.75 kg (R); bb Height 6 ft. 0 in. (182.88 cm) (R); Pain 2/10; 01:19 Body Mass Index 35.80 (119.75 kg, 182.88 cm) bb MDM: 01:10 Patient medically screened. kb 01:16 Data reviewed: vital signs, nurses notes. Data interpreted: Pulse oximetry: on room air kb is 100 %. Interpretation: normal. Counseling: I had a detailed discussion with the patient and/or guardian regarding: the historical points, exam findings, and any diagnostic results supporting the discharge/admit diagnosis, the need for outpatient follow up, a family practitioner, to return to the emergency department if symptoms worsen or persist or if there are any questions or concerns that arise at home. Administered Medications: 01:25 Drug: Augmentin (Amoxicillin-Clavulanate) 875 mg Route: PO; bb 01:33 Follow up: Response: Medication administered at discharge. bb 01:25 Drug: Ibuprofen 800 mg Route: PO; bb 01:33 Follow up: Response: Medication administered at discharge. bb Disposition: 03:31 Co-signature as Attending Physician, Naeem Blanton MD. [email or web address] Disposition Summary: 08/17/21 01:16 Discharge Ordered Location: Home kb Condition: Stable kb Diagnosis - Periapical abscess without sinus kb Followup: kb - With: Emergency Department - When: As needed - Reason: Worsening of condition Followup: kb - With: Private Physician - When: 2 - 3 days - Reason: Recheck today's complaints, Continuance of care, Re-evaluation by your physician Discharge Instructions: - Discharge Summary Sheet kb - Dental Abscess, [id number] kb Forms: - Medication Reconciliation Form kb - Thank You Letter kb - Antibiotic Education kb - Prescription Opioid Use kb Prescriptions: - Augmentin 875-125 mg Oral Tablet - take 1 tablet by ORAL route every 12 hours for 10 days; 20 tablet; Refills: 0, kb Product Selection Permitted - Diclofenac Sodium 75 mg Oral tablet,delayed release (DR/EC) - take 1 tablet by ORAL route 2 times per day As needed; 30 tablet; Refills: 0, kb Product Selection Permitted Signatures: Jenifer Heller FNP-C FNP-Ckb Ballard, Brenda, RN RN bb Naeem Blanton MD MD [email or web address] Corrections: (The following items were deleted from the chart) 01:23 01:22 PMHx: Hypertension; teresa moore
[2021-08-17] MEDS ORDERED: AMOX/K CLAV 875 MG TAB ONE (01:25)
[2021-08-17] MEDS ORDERED: IBUPROFEN 400 MG TAB ONE (01:26)
--- NOTE | 2021-08-17 01:35 | ER ---
Nurse's Notes [facility] Name: Naseem Casillas Age: 40 yrs Sex: Male : 1980 Arrival Date: 08/17/2021 Time: :09 Bed 18 Private MD: Diagnosis: Periapical abscess without sinus Presentation: 08/17 01:19 Chief complaint: Patient states: he has a tooth abscess on the right lower jaw since Tuesday today it "popped" but he needs some antibiotics prior to his dental appt. Coronavirus screen: At this time, the client does not indicate any symptoms associated with coronavirus-19. Ebola Screen: No symptoms or risks identified at this time. Initial Sepsis Screen: Does the patient meet any 2 criteria? No. Patient's initial sepsis screen is negative. Does the patient have a suspected source of infection? No. Patient's initial sepsis screen is negative. Risk Assessment: Do you want to hurt yourself or someone else? Patient reports no desire to harm self or others. Onset of symptoms was August 12, 2021. 01:19 Method Of Arrival: Ambulatory 01:19 Acuity: NAOMI 5 Historical: - Allergies: : No Known Allergies; bb - Home Meds: : None [Active]; bb - PMHx: : None; bb - PSHx: : foreign body removed from lung; bb - Immunization history:: Adult Immunizations up to date, Client reports receiving the Car \\T\\ Car single-dose vaccine. Note and booster. - Social history:: Smoking status: Patient reports the use of cigarette tobacco products, smokes one pack cigarettes per day. Patient uses alcohol, but reports only rare drinking. Patient/guardian denies using street drugs. Screenin: Abuse screen: Denies threats or abuse. Nutritional screening: No deficits noted. bb Tuberculosis screening: No symptoms or risk factors identified. Fall Risk None identified. Assessment: : General: Appears in no apparent distress. Behavior is calm, cooperative. Pain: bb Complains of pain in right lower jaw Pain currently is 2 out of 10 on a pain scale. Neuro: Level of Consciousness is awake, alert, obeys commands, Oriented to person, place, time, situation. Cardiovascular: Capillary refill < 3 seconds Patient's skin is warm and dry. Respiratory: Airway is patent Respiratory effort is even, unlabored, Respiratory pattern is regular. GI: No signs and/or symptoms were reported involving the gastrointestinal system. EENT: Poor dentition noted. Absence of teeth noted - lower right second molar (#31). Derm: Skin is pink, warm \\T\\ dry. Musculoskeletal: Circulation, motion, and sensation intact. 01:32 Reassessment: Patient is alert, oriented x 3, equal unlabored respirations, skin bb warm/dry/pink. pt verbalized understanding of and agrees to plan of care discharge instructions given pt ambulated with steady gait to exit. Vital Signs: 01:19 BP 158 / 82; Pulse 98; Resp 16 S; Temp 98.1; Pulse Ox 96% on R/A; Weight 119.75 kg (R); bb Height 6 ft. 0 in. (182.88 cm) (R); Pain 2/10; 01:19 Body Mass Index 35.80 (119.75 kg, 182.88 cm) bb ED Course: 01:09 Patient arrived in ED. bp1 01:10 Jenifer Heller FNP-C is PHCP. kb 01:10 Naeem Blanton MD is Attending Physician. kb 01:14 Adilene Sierra RN is Primary Nurse. kd3 01:22 Triage completed. bb 01:22 Arm band placed on Patient placed in an exam room, on a stretcher, on pulse oximetry. bb 01:23 Patient has correct armband on for positive identification. Bed in low position. Call bb light in reach. 01:23 No provider procedures requiring assistance completed. Patient did not have IV access bb during this emergency room visit. Administered Medications: 01:25 Drug: Augmentin (Amoxicillin-Clavulanate) 875 mg Route: PO; bb 01:33 Follow up: Response: Medication administered at discharge. bb 01:25 Drug: Ibuprofen 800 mg Route: PO; bb 01:33 Follow up: Response: Medication administered at discharge. bb Outcome: 01:16 Discharge ordered by . kb 01:34 Discharged to home ambulatory. bb 01:34 Condition: stable 01:34 Discharge instructions given to patient, Instructed on discharge instructions, follow up and referral plans. medication usage, Demonstrated understanding of instructions, follow-up care, medications, Prescriptions given X 2. 01:34 Patient left the ED. bb Signatures: Jenifer Heller, WARP DYEING TENDER-C WARP DYEING TENDER-CkJaylene Salter RN RN bb Mary Ayoub Kyli, RN RN kd3 Corrections: (The following items were deleted from the chart) 01: 01:22 PMHx: Hypertension; teresa moore
[2021-08-17 01:49] VITALS: BP 158/82; TEMP 98.1; O2SAT 96
== END 2021-08-17 01:34 | disposition home or self-care (01) ==
LOC: ER 01:04
DX: K04.7 Periapical abscess without sinus (principal); F17.210 Nicotine dependence, cigarettes, uncomplicated
CPT/HCPCS: 99283

== ENCOUNTER 2023-03-07 22:40 | Observation (INO) | payer OTHER, SELFPAY ==
--- OUTSIDE RECORDS SUMMARY | 2023-03-07 22:44 | XMS REPORT | Continuity of Care Document ---
:1980 Author Organization [facility] t Address [address] [facility] [address]. [address] [place] [address] Care Team Providers Name Role Phone PCP, PATIENT DOES NOT HAVE A Primary Care Physician Unavaila ble Doctor Unassigned, [place] Attending Clinician Unavailable Pcp, Patient Does Not Have A Attending Clinician [phone] FRANCHESCA DOUGLAS Attending Clinician Unavailable Wanda KO, Maco Palma Attending Clinician Franchesca Douglas MD Attending Clinician Tamiko Guillermo MD Attending Clinician PEYTON FRENCH Attending Clinician Unavailable Peyton French MD Attending Clinician Archana Bardales LVN Attending Clinician TRACY RUSHING Attending Clinician Unavailable Vonnie Goodman Attending Clinician Tracy Rushing DO Attending Clinician Cierra Bose MD Attending Clinician CIERRA BOSE Attending Clinician Unavailable Nico Pearce Attending Clinician Sheba Ya NP Attending Clinician SHEBA YA Attending Clinician Unavailable Romero Mayer Attending Clinician ROMERO HAGAN Attending Clinician Unavailable Anthony Nova Attending Clinician Anthony BENITEZ Attending Clinician Unavailable TAMIKO GUILLERMO Admitting Clinician Unavailable Tamiko Guillermo MD Admitting Clinician TRACY RUSHING Admitting Clinician Unavailable Tracy Rushing DO Admitting Clinician CIERRA BOSE Admitting Clinician Unavailable Payers Payer Name Policy Type Policy Number Effective Date Expiration Date Aryan yuen [employer] [id number] 3207-05-01 OUT OF NETWORK 00:00:00 HIM BCBS BLUE [id number] 2016 ADVANTAGE HMO 00:00:00 Problems Condition Condition Condition Status Onset Resolution Last Treating Co mments Source Name Details Category Date Date Treatment Clinician Date Elevated Elevated Disease Active Unive rs troponin troponin 4-15 ity of 00:00: [address] Branch Pancreatit Pancreatit Disease Active U nivers is, is, 3-31 [place] of gall[place] [facility] [place] Other Other Disease Active Univers acute acute 3-30 [place] of pancreatit [place]it [place], 00 Medical unspecifie unspecifie Br anch d d complicati complicati on status on status Obesity Obesity Disease Active Univers (BMI (BMI 3-30 ity of 30-39.9) 30-39.9) 00:00: [address] Recurrent Recurrent Disease Active Uni vers acute acute 3-29 [place]y of pancreatit pancreatit [place] Branch Allergies, Adverse Reactions, Alerts Allergy Allergy Status Severity Reaction(s) Onset Inactive Treating Comm ents Source Name Type Date Date Clinician MUSHROOM DRUG Active Rash Univers INGREDI 4-15 ity of 00:00: [address] Mushroom Propensi Active Rash Univer s ty to 4-15 ity of adverse 00:00: [place] reaction [address] [place] [address] NO KNOWN Drug Active Univers ALLERGIE Class ity of S [facility] Social History Social Habit Start Date Stop Date Quantity Comments Source History [facility] University o f Alcohol Frequency [facility] edical Golf History [facility] University o f Alcohol Std Drinks [facility] History SDOH University o f Alcohol Binge [place] [facility] Branch History of tobacco Passive smoker Un iversity of use [facility] Exposure to 2022-12-23 2023-01-02 Not sure University of SARS-CoV-2 (event) 00:00:00 06:12:00 [facility] Cigarettes smoked 2023-01-02 2023-01-02 Univers ity of current (pack per 00:00:00 00:00:00 [facility] ) - Reported Branch Cigarette 2023-01-02 2023-01-02 University of pack-years 00:00:00 00:00:00 [facility] Tobacco use and 2023-01-02 2023-01-02 Smokeless Universit y of exposure 00:00:00 00:00:00 tobacco non-user [facility] dical Golf Alcohol intake 2023-01-02 2023-01-02 Current drinker Unive rsity of 00:00:00 00:00:00 of alcohol [facility] (finding) Golf Alcohol Comment 2021-12-16 2021-12-16 rare Universit y of 00:00:00 00:00:00 [facility] Education 2021-12-16 2021-12-16 16 University of 00:00:00 00:00:00 [facility] Sex [birth year] At [birth year] Universit y of 00:00:00 00:00:00 [facility] Smoking Status Start Date Stop Date Source Smokes tobacco daily 2023-01-02 00:00:00 Univers ity of [facility] Medications Ordered Filled Start Stop Current Ordering Indication Dosage Frequency Signature Comments Components Source Medication Medication Date Date Medication? Clinician (SIG) Name Name lisinopriL 2022- Yes [id number] 10mg Take 1 Univers 10 mg 4-17 07-17 tablet by ity of tablet 00:00: 04:59 mouth in [place] 00 :00 [facility] Medical [facility] for 90 days. lisinopriL 2022- Yes [id number] 10mg Take 1 Univers 10 mg 4-17 07-17 tablet by ity of tablet 00:00: 04:59 mouth in [place] 00 :00 [facility] for 90 days. lisinopriL 2022- Yes [id number] 10mg Take 1 Univers 10 mg 4-17 07-17 tablet by ity of tablet 00:00: 04:59 mouth in [place] 00 :00 the Medical morning Branch for 90 days. lisinopriL Yes 10mg 10 mg, Unive rs (PRINIVIL,Z 4-16 Oral, ity of ESTRIL) 14:00: DAILY, [place] tablet 10 00 First dose Medi mode mg on Sun Branch 01/02/23 at 0900, Until Discontinu ed, Routine KCL 2022- No 40meq 40 mEq, Univers (KLOR-CON 4-16 04-16 Oral, ity of M20) tablet 12:30: 14:55 ONCE, 1 [place] 40 mEq 00 :00 dose, On Medical [place] Branch 01/02/23 at 0730, Routine Sliding Yes Subcutaneo [facility] ers Scale 4-16 us, TID ity of Insulin - 02:00: MEALS+HS, [place] as Lispro 00 First dose Medical (HumaLOG) + on Sat Branch Fsbg 01/01/23 at Testing 2100, Until Discontinu ed, Routine lactated 2022- No 1000mL at 150 [facility] ers ringers IV -16 04-16 mL/hr, ity of infusion 01:00: 12:35 1,000 mL, [place] as 1,000 mL 00 :00 IV Medical Infusion, Branch ONCE, 1 dose, On 01/01/23 at 2000, Routine atorvastati 2022- Yes [id number] 40mg Take 1 Univers n 40 mg 4-16 07-16 tablet by ity of tablet 00:00: 04:59 mouth at [place] 00 :00 bedtime Medical for 90 Branch days. dulaglutide 2022- Yes [id number] 3mg inject 3 Univers injection 4-16 07-16 mg under ity o f 00:00: 04:59 the skin [place] 00 :00 weekly for Medical 90 days. Branch atorvastati 2022- Yes [id number] 40mg Take 1 Univers n 40 mg 4-16 07-16 tablet by ity of tablet 00:00: 04:59 mouth at [place] 00 :00 bedtime Medical for 90 Branch days. dulaglutide 2022- Yes [id number] 3mg inject 3 Univers injection 4-16 07-16 mg under ity o f 00:00: 04:59 the skin [place] 00 :00 weekly for Medical 90 days. Branch atorvastati 2022- Yes [id number] 40mg Take 1 Univers n 40 mg 4-16 07-16 tablet by ity of tablet 00:00: 04:59 mouth at [place] 00 :00 bedtime Medical for 90 Branch days. dulaglutide 2022- Yes [id number] 3mg inject 3 Univers injection 4-16 07-16 mg under ity o f 00:00: 04:59 the skin [place] 00 :00 weekly for Medical 90 days. Branch dextrose Yes 250mL 250 mL, IV Un leona 10% (D10W) 4-15 Infusion, ity of bolus 23:54: PRN - SEE [place] infusion 07 INSTRUCTIO Medic al 250 mL NS, Branch Administer over 60 Minutes, Other, If blood glucose is < or = 70 mg/dL and patient is unable to swallow or has mental status changes, Starting on [facility] 01/01/23 at 1854
If blood glucose is < or = 70 mg/dL and patient is unable to swallow or has mental status changes (Give glucagon order if patient needs fluid restrictio n): IF IV access available: Dextrose 10%. 1. 125 mL (? bag) of D10W IV infusion - equivalent to 12.5 g dextrose 2. Blood glucose - draw blood glucose 15 minutes after D10W Administra tion. 3. If blood glucose is < 80 mg/dL, repeat.
glucagon Yes 1mg 1 mg, Univers (GLUCAGEN 4-15 Intramuscu ity of DIAGNOSTIC 23:54: [place], PRN, [place]) 04 Starting Medical injection 1 on [facility] 01/01/23 at 1854, Until Discontinu ed, ADONIS, Blood Glucose < or = 70 mg/dL and patient is NPO, unable to swallow or has mental changes. acetaminoph Yes 650mg 650 mg, Un leona en 4-15 Oral, ity of (TYLENOL) 23:53: Q6HPRN, [place] tablet 650 50 Starting Medic al mg on [facility] Branch 01/01/23 at 1853, Until Discontinu ed, Routine, Pain (scale 1-3) glipiZIDE Yes [id number] 2.5mg Take 1 U nivers XL 2.5 mg 5-17 tablet by ity o f 24 hr 00:00: mouth [place] tablet 00 daily. Medical Branch glipiZIDE Yes [id number] 2.5mg Take 1 U nivers XL 2.5 mg 5-17 tablet by ity o f 24 hr 00:00: mouth [place] tablet 00 daily. [facility] Branch glipiZIDE 2022- No [id number] 2.5mg Take 1 Univers XL 2.5 mg 5-17 04-15 tablet by ity of 24 hr 00:00: 00:00 mouth [place] tablet 00 :00 daily. [facility] Branch glipiZIDE 2021- No 2.5mg Take 2.5 Un leona XL 2.5 mg 4-02 05-10 mg by ity of 24 hr 00:00: 00:00 mouth [place] tablet 00 :00 daily. [facility] Branch ondansetron Yes [id number] 4mg Take 1 Univers 4 mg 3-29 tablet by ity of disintegrat 00:00: mouth [place] ing tablet 00 every 4 Medica l (four) Branch hours as needed for Nausea and Vomiting (N/V). ondansetron Yes [id number] 4mg Take 1 Univers 4 mg 3-29 tablet by ity of disintegrat 00:00: mouth [place] ing tablet 00 every 4 Medica l (four) Branch hours as needed for Nausea and Vomiting (N/V). ondansetron Yes [id number] 4mg Take 1 Univers 4 mg 3-29 tablet by ity of disintegrat 00:00: mouth [place] ing tablet 00 every 4 Medica l (four) Branch hours as needed for Nausea and Vomiting (N/V). ondansetron 2022- No [id number] 4mg Take 1 Univers 4 mg 3-29 04-15 tablet by ity of disintegrat 00:00: 00:00 [place] tablet 00 :00 every 4 Medica l (four) Branch hours as needed for Nausea and Vomiting (N/V). ibuprofen Yes [id number] 600mg Take 1 Univers 600 mg 2-18 105 tablet by ity of tablet 00:00: mouth [place] 00 every 6 Medical (six) Branch hours as needed for Pain (scale 4-6). ibuprofen 0 Yes [id number] 600mg Take 1 Univers 600 mg 2-18 105 tablet by ity of tablet 00:00: mouth [place] 00 every 6 Medical (six) Branch hours as needed for Pain (scale 4-6). ibuprofen 2021-0 Yes [id number] 600mg Take 1 Univers 600 mg 2-18 105 tablet by ity of tablet 00:00: mouth [place] 00 every 6 Medical (six) Branch hours as needed for Pain (scale 4-6). ibuprofen 3- No [id number] 600mg Take 1 Univers 600 mg 2-18 04-15 105 tablet by ity of tablet 00:00: 00:00 mouth [place] 00 :00 every 6 Medical (six) Branch hours as needed for Pain (scale 4-6). Vital Signs Vital Name Observation Time Observation Value Comments Source Systolic blood 2023-01-02 16:25:00 162 [facility]Hg[facility] 2023-01-02 16:25:00 [facility] 2023-01-02 16:25:00 81 /min [facility] Oxygen saturation in 2023-01-02 16:25:00 94 /min [facility] Arterial blood by [facility] [place] [place] Pulse oximetry [place] Body temperature 2023-01-02 16:24:00 36.44 Delaney [facility] Respiratory rate 2023-01-02 16:24:00 20 /min [facility] Body height 2023-01-02 11:18:00 182.9 cm [facility] Body weight 2023-01-02 11:18:00 127.914 kg [facility] BMI 2023-01-02 11:18:00 38.25 kg/m2 [facility] Systolic blood 2022-02-04 21:22:00 127 mm[Hg] [facility] Diastolic blood 2022-02-04 21:22:00 77 [facility] 2022-02-04 21:21:00 83 /min [facility] Body temperature 2022-02-04 21:21:00 36.11 Delaney [facility] Respiratory rate 2022-02-04 21:21:00 17 /min [facility] Body height 2022-02-04 21:21:00 182.9 cm [facility] Body weight 2022-02-04 21:21:00 126.372 kg [facility] BMI 2022-02-04 21:21:00 37.78 kg/m2 [facility] Oxygen saturation in 2022-02-04 21:21:00 97 /min [facility] Arterial blood by [facility] [place] Pulse oximetry Golf Procedures Procedure Date / Time Performing Clinician Source Performed EXTERNAL PROVIDER 2023-01-17 05:01:00 Doctor Unassigned, No [facility] RECORDS Name [facility] TROPONIN I 2023-01-02 10:08:00 [facility] TROPONIN I 2023-01-02 04:21:00 [facility] THYROID STIMULATING 2023-01-02 04:21:00 Susan [facility] HORMONE [facility] CBC WITHOUT DIFF 2023-01-02 04:21:00 [facility] GLYCOSYLATED HEMOGLOBIN 2023-01-02 04:21:00 [facility] (A1C) [facility] HEPATIC FUNCTION PANEL 2023-01-02 04:20:00 Susan, Jocelyn [facility] ([id number]) (ALB,T.PRO,BILI [facility] Branch T,BU/BC,ALT,AST,ALK PHOS) BASIC METABOLIC PANEL 2023-01-02 04:20:00 Susan, [facility] (NA, K, CL, CO2, Medical Branch GLUCOSE, BUN, CREATININE, CA) LIPID PANEL 2023-01-02 04:20:00 Susan, [facility] ([id number])(TOTAL Medical Golf CHOLESTEROL, TRIGLYCERIDES, HDL) Encounters Start End Encounter Admission Attending Care Care Encounter Source Date/Time Date/Time Type Type Clinicians Facility Department ID 2023-01-17 2023-01-17 Orders Doctor JULIO [id number] Univers 00:00:00 00:00:00 Only Unassigned, KELLY 350.1.13.10 ity of [place] [facility] 4.2.7.2.686 [place] as [id number] [facility] 009 Branch 2023-01-10 2023-01-10 Telephone [facility] [id number] Univers 00:00:00 00:00:00 Patient PRIMARY 350.1.13.10 it y of Does Not CARE 4.2.7.2.686 [place] as Have A PAVILLION [id number] Ar dical 388 Golf 2023-01-01 2023-01-02 Outpatient [facility] [id number] Univers 18:26:00 13:04:00 FRANCHESCA alvarez [facility] [place] [facility] 2023-01-01 2023-01-02 [facility] Maco Muñoz 1.2.840 .114 [id number] Univers 18:26:00 13:04:00 [facility] 350.1.13 .10 ity of [facility] 4.2.7.2.686 [place] [id number] [facility] 094 Golf 2022-02-04 2022-02-04 Outpatient R [facility] [id number] Univers 16:15:00 16:33:28 PEYTON alvarez [facility] [place] [facility] 2022-02-04 2022-02-04 Office [facility] [id number] Univers 16:15:00 16:33:28 Visit Peyton RECINOS 350.1.13.10 i ty of [place]2.[place].2.686 [place] PROF[place] [id number] Ar dical NAL 188 [facility] 2022-02-04 2022-02-04 [facility] [id number] Univers 16:15:00 16:15:00 PEYTON alvarez [facility] [place] [facility] 2022-01-26 2022-01-26 Telephone [facility] [id number] Univers 00:00:00 00:00:00 Peyton ALASQUNA 350.1.13.10 i ty of [facility] 4.2.7.2.[place] [id number] [place] [id number] Golf 2022-01-26 2022-01-26 [facility] [id number] Univers 00:00:00 00:00:00 Peyton GRISEL 350.1.13.10 i ty of [facility] 4.2.7.2.686 [place] [id number] Ar dical NAL 188 [facility] 2022-01-04 2022-01-04 Outpatient R MANOLO [facility] [id number] Univers 08:30:00 09:03:11 PEYTON kim [facility] [place] [facility] 2022-01-04 2022-01-04 [facility] [id number] Univers 08:30:00 09:03:11 Visit Peyton RECINOS 350.1.13.10 i ty of [facility] 4.2.7.2.[place] [id number] Ar dical NAL 188 [facility] 2021-12-21 2021-12-21 Transition HAILY Bardales 1.2.840.114 [id number] Univers 00:00:00 00:00:00 of Care Archana DUMONT 350.1.13.10 [place]2.[place]2.[place] [id number] [facility] 403 Branch 2021-12-16 2021-12-18 Inpatient X KRISTAN [facility] LIZANDRO [id number] Univers 09:39:00 22:45:00 TRACY alvarez [facility] [place] [facility] 2021-12-16 2021-12-18 Hospital Vonnie Abdul [facility] 1.2.840.1 [id number] Univers 09:39:00 22:45:00 Encounter Tracy Rushing 350.1.13.10 ity of [facility] 4.2.7.2.[place] [id number] [place] [id number] Golf 2021-12-18 2021-12-18 [facility] [id number] Univers 12:30:00 15:25:00 Peyton RECINOS 350.1.13.10 i ty of [place] 4.2.7.2.686 [facility] [id number] [place] [address] Branch 2021-12-15 2021-12-15 Emergency [facility] ERT [id number] Univers 13:14:00 17:12:00 TRACY alvarez [facility] [place] [facility] 2021-12-15 2021-12-15 [facility] Cirera Bose [facility] 1.2.840.1 [id number] Univers 13:14:00 17:12:00 Encounter Tracy Rushing GRISEL 350.1.13.10 ity of [place] 4.[address] [place] [id number] 2021-12-15 2021-12-15 Emergency [facility] LIZANDRO [id number] Univers 13:14:00 17:12:00 TRACY alvarez [facility] [place] [facility] 2021-11-06 2021-11-06 Emergency [facility] [id number] Univers 07:23:00 08:42:00 CIERRA joleen [facility] [place] [facility] 2021-11-06 2021-11-06 [facility] [id number] Univers 07:23:00 08:42:00 Cierra RECINOS 350.1.13.10 i ty of [place] 4.2.7.2.686 [facility] [id number] [address] 2021-05-22 2021-05-22 Emergency [facility] 1.2.840.114 [id number] Univers 18:29:00 20:41:00 Nico Recinos 350.1.13.10 ity of [place] 4.2.7.2.686 [facility] [id number] [address] 2021-05-22 2021-05-22 Emergency X [facility] ERT [id number] Univers 18:05:00 18:05:00 ity [facility] [place] [facility] 2021-05-22 2021-05-22 Orders Doctor KIM 1.2.840.114 [id number] Univers 00:00:00 00:00:00 Only Unassigned, KELLY 350.1.13.10 ity of [place] [facility] 4.2.7.2.686 Yariel [id number] [facility] 009 Branch 2021-05-12 2021-05-12 Emergency [facility] [id number] Univers 19:10:00 20:15:00 Sheba Recinos 350.1.13.10 ity of [place] 4.2.7.2.686 [facility] [id number] [place] [id number] Branch 2021-05-12 2021-05-12 Emergency X [facility] ERT [id number] Univers 19:10:00 19:10:00 SHEBA ity [facility] [place] [facility] 2020-11-30 2020-12-01 Emergency [facility] 1.2.840.114 [id number] Univers 21:32:00 00:21:00 oRmero Recinos 350.1.13.10 i ty of [place] 4.2.7.2.686 [facility] [id number] [place] 504064 Branch 2020-11-30 2020-11-30 Emergency [facility] [id number] Univers 21:32:00 21:32:00 ROMERO ity [facility] [place] [facility] 2020-10-21 2020-10-21 Emergency Anthony Benitez [facility] 1.2.840.114 [id number] Univers 19:16:00 20:08:00 Chely Recinos 350.1.13.10 i ty of [place] 4.2.7.2.686 [facility] [id number] [place] [id number] Branch 2020-10-21 2020-10-21 Emergency X Anthony BENITEZ [facility] ERT [id number] Univers 19:16:00 19:16:00 ity [facility] [place] [facility] Results This patient has no known results.
[2023-03-07 23:28] LABS: Absolute Lymphocytes (CBC) 2.3 K/uL (0.7-4.9); Hematocrit 46.6 % (39.6-49.0); Lymphocytes % 17.4 % (15.3-44.8); MCV 81.5 fL (80-100); MPV 8.3 fL (7.6-11.3); RBC Red Blood Cell Count 5.72 M/uL (4.33-5.43)
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
[2023-03-07 23:44] LABS: Magnesium 2.3 mg/dL (1.6-2.4); Potassium 3.1 mEq/L (3.5-5.1)
[2023-03-08] MEDS ORDERED: NA CHLORIDE 0.9% 1,000 ML ONE (02:18)
[2023-03-08] MEDS ORDERED: ACETAMINOPHEN 500 MG TAB PO PRN (02:39)
[2023-03-08] MEDS ORDERED: ONDANSETRON 4 MG/2 ML VIAL IV PRN (02:39)
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
[2023-03-08] MEDS ORDERED: NICOTINE 21 MG/PAT TD ONE (02:52)
[2023-03-08 03:51] VITALS: BMI 34.0
[2023-03-08 04:39] LABS: Potassium 3.5 mEq/L (3.5-5.1)
[2023-03-08 04:41] LABS: Troponin High Sensitivity 62.6 pg/mL (<58.9)
[2023-03-08] MEDS: INSULIN -REGULAR HUMAN 50 UNIT/0.5 ML ML SQ SCH ×4 (07:30→21:00)
--- NOTE | 2023-03-08 08:28 | P.PN ---
Date of Service: 03/09/23 Subjective: feeling back to normal self denies chest pain no new / worsening problems ROS: 10 point ROS as noted above, otherwise negative Physical Exam: GEN: Alert, oriented, NAD HEENT: Normal conjunctiva, sclera anicteric CV: Regular rate and rhythm, no edema Pulm: Nonlabored respirations on room air ABD: Soft, nontender, nondistended MSK: No joint tenderness Integumentary: No rashes Neuro: Normal speech, normal affect Problem List: Chest pain NIDDM2 Hypertension Hyperlipidemia Tobacco abuse Chest pain Trend troponins, monitor on telemetry cardiology consulted Had a stress test approximately 12 years ago which was negative at that time no further cardiac evaluation has taken place since then. Negative for PE. NPO NIDDM2 ACHS Accu-Chek, sliding scale insulin. Takes Ozempic at home. Hypertension Hyperlipidemia Home medications continued Tobacco abuse Counseled on need for cessation, given NicoDerm patch. VTE: Lovenox Code: Full Dispo: Home, pending clearance from cardio
[2023-03-08] MEDS: ENOXAPARIN 40 MG/0.4 ML SQ SCH (09:00)
[2023-03-08] MEDS ORDERED: POTASSIUM CL SA 10 MEQ TAB PO ONE (09:00)
[2023-03-08] MEDS: lisinopriL 10 MG TAB PO SCH (09:19)
[2023-03-08] MEDS: ASPIRIN EC 81 MG TAB PO SCH (09:19)
[2023-03-08] MEDS: VENLAFAXINE HCL XR 75 MG CAP PO SCH (10:24)
--- NOTE | 2023-03-08 11:32 | RAD REPORT ---
EXAM DESCRIPTION: US - Renal Ultrasound-Complete - 03/08/2023 10:30 am CLINICAL HISTORY: left renal mass vs cyst COMPARISON: CT ABD PELVIS W CONTRAST dated 03/23/2015 TECHNIQUE: Sonographic grayscale and color flow images of the kidneys were obtained. FINDINGS: Both kidneys are normal in size, shape and echotexture. The right kidney measures 13 centimeter in length. No hydronephrosis, focal mass or perinephric fluid . The left kidney measures 13.7 centimeter in length. No hydronephrosis, focal mass or perinephric flui d. No echogenic calculi. The urinary bladder is incompletely distended without gross abnormality seen. IMPRESSION: Nonspecific slight size asymmetry of the kidneys, without other suspicious finding.
[2023-03-08 12:12] LABS: Specific Gravity > 1.030 (1.005-1.030); Urine Bacteria None Seen /HPF (<20); Urine Bilirubin NEGATIVE (Negative); Urine Blood Negative (Negative); Urine Clarity Clear (Clear); Urine Color Light-Yellow (Yellow); Urine Glucose NEGATIVE (Negative); Urine Protein TRACE (Negative); Urine RBC <5 /HPF (None Seen); Urine Urobilinogen Normal (Normal); Urine pH 6.5 (5.0-7.0)
--- NOTE | 2023-03-08 13:52 | RAD REPORT ---
EXAM DESCRIPTION: CT - Chest For Pe Angio - 03/08/2023 2:01 am CLINICAL HISTORY: The patient is 42 years old and is Male; CHEST PAIN [facility] MAIN TECHNIQUE: Axial computed tomographic angiography images of the chest with intravenous contrast. S agittal and coronal reformatted images were created and reviewed. This CT exam was performed using one or more of the following dose reduction techniques: automated exposure control, adjustment of t he mA and/or kV according to patient size, and/or use of iterative reconstruction technique. MIP reconstructed images were created and reviewed. COMPARISON: No relevant prior studies available. FINDINGS: PULMONARY ARTERIES: Evaluation for pulmonary embolism significantly degraded secondary t o severe bilateral respiratory motion artifact. Allowing for this, no pulmonary embolism is identifie d. AORTA: No acute findings. No thoracic aortic aneurysm. LUNGS: Unremarkable. No mass. No consolidation. PLEURAL SPACE: Unremarkable. No significant effusion. No pneumothorax. HEART: Unremarkable. No cardiomegaly. No significant pericardial effusion. No evidence of RV dysfunction. BONES/JOINTS: No acute fracture. No dislocation. SOFT TISSUES: Bilateral gynecomastia. LYMPH NODES: Unremarkable. No enlarged lymph nodes. KIDNEYS AND URETERS: Exophytic, homogenous, 2.1 cm low-attenuation focus along the superior pole th e left kidney (axial images 98). IMPRESSION: 1. Evaluation for pulmonary embolism significantly degraded secondary to severe bilate ral respiratory motion artifact. Allowing for this, no pulmonary embolism is identified. No acute car diopulmonary abnormality. 2. Exophytic, homogenous, 2.1 cm low-attenuation focus along the superior pole the left kidney (axi al images 98). While this could reflect a renal cyst with artificially increased internal attenuati on, recommend further characterization by nonemergent renal ultrasound or renal mass protocol abdomin al CT to better characterize the finding. Electronically signed by: Noam Dooley MD 03/08/2023 2:29 AM CDT Due to temporary technical issues with the PACS/Fluency reporting system, reports are being signed by the in house radiologists without review as a courtesy to insure prompt reporting. The interpreting radiologist is fully responsible for the content of the report.
--- NOTE | 2023-03-08 15:55 | RAD REPORT ---
EXAM DESCRIPTION: RAD - Chest Single View - 03/07/2023 10:57 pm CLINICAL HISTORY: CHEST PAIN TECHNIQUE: AP chest COMPARISON: None available for comparison FINDINGS: CHEST: Heart: The cardiomediastinal silhouette is within normal limits. Lungs: No focal consolidation. Mediastinum: Unremarkable Pleura: No appreciable effusion. No pneumothorax. Bones: Intact IMPRESSION: No acute cardiopulmonary disease. Electronically signed by: Denis Vazquez MD 03/07/2023 11:23 PM CDT Due to temporary technical issues with the PACS/Fluency reporting system, reports are being signed by the in house radiologists without review as a courtesy to insure prompt reporting. The interpreting radiologist is fully responsible for the content of the report.
[2023-03-08] MEDS ORDERED: ATORVASTATIN 40 MG TAB PO SCH (21:00)
[2023-03-08] MEDS: NICOTINE 21 MG/PAT TD SCH (23:34)
[2023-03-09 06:07] LABS: Hematocrit 43.1 % (39.6-49.0); MPV 8.3 fL (7.6-11.3); RBC Red Blood Cell Count 5.25 M/uL (4.33-5.43)
[2023-03-09 06:16] LABS: Potassium 3.7 mEq/L (3.5-5.1); Thyroid Stimulating Hormone 1.01 uIU/mL (0.358-3.740)
[2023-03-09] MEDS: INSULIN -REGULAR HUMAN 50 UNIT/0.5 ML ML SQ SCH ×3 (07:30→16:30)
[2023-03-09] MEDS: ENOXAPARIN 40 MG/0.4 ML SQ SCH (09:00)
[2023-03-09] MEDS ORDERED: POTASSIUM CL SA 10 MEQ TAB PO ONE (09:00)
[2023-03-09] MEDS: NICOTINE 21 MG/PAT TD SCH (09:00)
[2023-03-09 10:21] LABS: Barbiturates NEGATIVE (NEGATIVE); Benzodiazepines NEGATIVE (NEGATIVE); Cocaine NEGATIVE (NEGATIVE); METHAMPHETAM NEGATIVE (NEGATIVE); Methadone NEGATIVE (NEGATIVE); Opiates NEGATIVE (NEGATIVE); Phencyclidine NEGATIVE (NEGATIVE); THC Cannibis NEGATIVE (NEGATIVE)
[2023-03-09] MEDS: VENLAFAXINE HCL XR 75 MG CAP PO SCH (11:33)
[2023-03-09] MEDS: ASPIRIN EC 81 MG TAB PO SCH (11:33)
[2023-03-09] MEDS: lisinopriL 10 MG TAB PO SCH (11:33)
[2023-03-09] MEDS ORDERED: HEPARIN 5000 UNIT/ML 1 ML VIAL ONE (14:07)
[2023-03-09] MEDS ORDERED: VERAPAMIL HCL 10 MG/4 ML VIAL IV ONE (14:07)
[2023-03-09] MEDS ORDERED: MIDAZOLAM HCL 2 MG/2 ML INJ ONE (14:07)
[2023-03-09] MEDS ORDERED: HEPA 1000U/500MLS 2,000 UNIT/1,000 ML BAG IV ONE (14:07)
[2023-03-09] MEDS ORDERED: LIDOCAINE 1% 20 ML MDV ONE (14:07)
[2023-03-09] MEDS ORDERED: NITROGLYCERIN 100 MCG/ML SYR (for cath lab use only) IV ONE (14:08)
[2023-03-09] MEDS ORDERED: HEPARIN 10,000 UNIT/10 ML VIAL IV ONE (14:08)
[2023-03-09] MEDS ORDERED: FENTANYL CITR 100 MCG/2 ML ONE (14:08)
[2023-03-09] MEDS ORDERED: ATROPINE SULF 1 MG/10 ML SYR IV ONE (14:08)
[2023-03-09] MEDS ORDERED: NA CHLORIDE 0.9% 500 ML ONE (17:39)
[2023-03-09] MEDS ORDERED: HYDRALAZINE HCL 20 MG/ML VIAL ONE (17:59)
--- NOTE | 2023-03-09 19:13 | EKG ---
Test Date: 2023-03-08 Test Time: 01:19:41 Armament Installer: TREVOR MEASUREMENT RESULTS: Intervals: Rate: 90 VT: 170 QRSD: 82 QT: 364 QTc: 445 [place]: P: 64 VT: 170 QRS: -35 T: 73 INTERPRETIVE STATEMENTS: Normal sinus rhythm Left axis deviation Abnormal ECG Compared to ECG 03/07/2023 23:14:42 No significant changes Electronically Signed On 03-09-23 19:10:35 CDT by Grzegorz Clark
--- NOTE | 2023-03-09 19:14 | EKG ---
Test Date: 2023-03-07 Test Time: 23:14:42 Server Administrator: TREVOR MEASUREMENT RESULTS: Intervals: Rate: 88 HI: 174 QRSD: 88 QT: 356 QTc: 430 [place]: P: 51 HI: 174 QRS: -35 T: 38 INTERPRETIVE STATEMENTS: Normal sinus rhythm Left axis deviation Abnormal ECG Compared to ECG 08/14/2012 17:30:33 No significant changes Electronically Signed On 03-09-23 19:10:39 CDT by Grzegorz Clark
[2023-03-09 19:35] VITALS: O2SAT 97
[2023-03-09 20:42] VITALS: BP 166/68; TEMP 96.9
--- NOTE | 2023-03-10 06:54 | ECHO ---
HEIGHT: 6 ft 0 in WEIGHT: 251 lb 0 oz DATE OF STUDY: 03/08/[address]: Bryan Pelayo NP 2-DIMENSIONAL: YES M.MODE: YES DOPPLER: YES COLOR FLOW: YES TDS: PORTABLE: YES DEFINITY: BUBBLE STUDY: DIAGNOSIS: CHEST PAIN/ SYNCOPE CARDIAC HISTORY: CATHERIZATION: SURGERY: PROSTHETIC VALVE: PACEMAKER: MEASUREMENTS (cm) DIASTOLIC (NORMALS) SYSTOLIC (NORMALS) IVSd 1.1 (0.6-1.2) LA Diam 4.0 (1.9-4.0) LVEF 57% LVIDd 4.7 (3.5-5.7) LVIDs 3.3 (2.0-3.5) %FS 30% LVPWd 0.9 (0.6-1.2) Ao Diam 3.1 (2.0-3.7) 2 DIMENSIONAL ASSESSMENT: RIGHT ATRIUM: NORMAL LEFT ATRIUM: NORMAL RIGHT VENTRICLE: NORMAL LEFT VENTRICLE: NORMAL TRICUSPID VALVE: TRACE TRICUSPID REGURGITATION MITRAL VALVE: NORMAL PULMONIC VALVE: NORMAL AORTIC VALVE: NORMAL PERICARDIAL EFFUSION: NONE AORTIC ROOT: NORMAL LEFT VENTRICULAR WALL MOTION: NORMAL DOPPLER/COLOR FLOW: TRACE TRICUSPID REGURGITATION COMMENTS: 1. NORMAL LEFT VENTRICULAR EJECTION FRACTION 55-60% 2. NORMAL WALL MOTION 3. NORMAL DIASTOLIC FUNCTION 4. TRACE TRICUSPID REGURGITATION TECHNOLOGIST: KARI PIERCE
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
== END 2023-03-09 20:15 | disposition home or self-care (01) ==
LOC: ER 22:40 → ERHOLD 03-08 02:21 → 4TH 03-08 02:32
PROVIDERS: ADMIT Hospitalist; ATTEND Hospitalist
PROC: 4A023N7 Measurement of Cardiac Sampling and Pressure, Left Heart, Percutaneous Approach (ICD-10-PCS; principal; 2023-03-09)
PROC: B2111ZZ Fluoroscopy of Multiple Coronary Arteries using Low Osmolar Contrast (ICD-10-PCS; 2023-03-09)
DX: R07.9 Chest pain, unspecified (principal); R55 Syncope and collapse; I10 Essential (primary) hypertension; E11.9 Type 2 diabetes mellitus without complications; E78.5 Hyperlipidemia, unspecified; F17.210 Nicotine dependence, cigarettes, uncomplicated; Z71.6 Tobacco abuse counseling; Z79.84 Long term (current) use of oral hypoglycemic drugs; Z79.899 Other long term (current) drug therapy; Z91.013 Allergy to seafood; Z90.49 Acquired absence of other specified parts of digestive tract; Z82.49 Family history of ischemic heart disease and other diseases of the circulatory system; Z83.3 Family history of diabetes mellitus
CPT/HCPCS: 36415; 71045; 71275; 76770; 76937; 80048; 80307; 81001; 82550; 83735; 83880; 84443; 84484; 85025; 85027; 93005; 93306; 93458; 96360; 99285; C1893; G0378; J0360; J0461; J1644; J1650; J2001; J2250; J3010; J7030; J7040; Q9966; Q9967